=== PATIENT | female | born 1965 | race American Indian/Alaskan Native ===

== ENCOUNTER 2017-02-28 07:42 | Outpatient (CLI) | payer BC ==
--- NOTE | 2017-02-28 09:19 | Cat Scan Report ---
CT of the chest with IV contrast. History: Cough. Findings: The mediastinum and hilar regions are normal. The lungs are clear except for minimal parenchymal scarring in the left lower lobe. There no pulmonary nodules or infiltrates. There is no fluid in the pleural space. There is no axillary adenopathy. Impression: Normal study.
== END 2017-02-28 07:43 | disposition home or self-care (01) ==
LOC: CT 07:42
PROVIDERS: ATTEND Internal Medicine
DX: R05 Cough (principal); J98.4 Other disorders of lung
CPT/HCPCS: 71260; Q9967